=== PATIENT | male | born 1990 | race Caucasian/White ===

== ENCOUNTER 2018-08-24 00:03 | Emergency (ER) | payer MEDICAID, OTHER ==
[~2018-08-24] VITALS: Ht 157.5 cm; Wt 74.3 kg
[2018-08-24 00:06] VITALS: Ht 157.5 cm; Wt 74.3 kg
[2018-08-24] MEDS ORDERED: KETOROLAC 60 MG INJ IM STA (02:16)
[2018-08-24] MEDS ORDERED: LORAZEPAM 2 MG INJ IM ONE (02:30)
--- NOTE | 2018-08-24 02:59 | ERD ---
ER Documentation Chief Complaint Chief Complaint CP X'S 2 HOURS HPI Is a 27-year-old male who comes in with chest pain for the past 2 hours. Denies fevers chills nausea vomiting. The chest pain is gone off the past 6 months happens when he feels very anxious. Also feels palpitations when it comes on. Denies any other current complaints or chest pain is right-sided and spread to the left side of his chest that is very reproducible and worse with movement ROS All systems reviewed and are negative except as per history of present illness. Allergies Allergies: Coded Allergies: No Known Allergy (Unverified , 08/24/18) PMhx/Soc Medical and Surgical Hx: pt denies Medical Hx, pt denies Surgical Hx History of Surgery: No Anesthesia Reaction: No Hx Neurological Disorder: No Hx Respiratory Disorders: No Hx Cardiac Disorders: No Hx Psychiatric Problems: No Hx Miscellaneous Medical Probl: No Hx Alcohol Use: No Hx Substance Use: No Hx Tobacco Use: No Smoking Status: Never smoker Physical Exam Vitals Vital Signs Date Temp Pulse Resp B/P (MAP) Pulse Ox O2 O2 Flow FiO2 Time Delivery Rate 08/24/18 60 15 117/90 100 Room Air 01:55 (99) 08/24/18 98.2 69 18 137/65 99 00:06 (89) Physical Exam Const: No acute distress Head: Atraumatic Eyes: Normal Conjunctiva ENT: Normal External Ears, Nose and Mouth. Neck: Full range of motion. No meningismus. Resp: Clear to auscultation bilaterally Cardio: Regular rate and rhythm, no murmurs Abd: Soft, non tender, non distended. Normal bowel sounds Skin: No petechiae or rashes Back: No midline or flank tenderness Ext: No cyanosis, or edema Neur: Awake and alert Psych: Normal Mood and Affect Results 24 hrs Current Medications Medications Dose Sig/Marion Start Time Status Last (Trade) Ordered Route PRN Stop Time Admin Dose Reason Admin Ketorolac 60 mg ONCE STAT 08/24/18 DC 08/24/18 Tromethamine IM 02:16 02:22 (Toradol) 08/24/18 02:18 Lorazepam 1 mg ONCE ONCE 08/24/18 DC 08/24/18 (Ativan) IM 02:30 02:22 08/24/18 02:31 Procedures/MDM EKG: Rate/Rhythm: [Normal Sinus Rhythm] QRS, ST, T-waves: [No changes consistent w/ acute ischemia] Impression: [No evidence of ischemia or arrhythmia] Chest X-ray 1V Interpreted by me: Soft Tissue: No acute abnormalities Bones: No acute abnormalities Mediastinum/Cardiac Silhouette/Lungs: [No acute abnormalities] Medical decision making: Patient's thoracic symptoms have stabilized while in the department and are stable for outpatient follow up. Exam and work up not consistent w/ ischemia, arrhythmia, PE or dissection. Departure Diagnosis: Primary Impression: Chest pain Chest pain type: unspecified Qualified Codes: R07.9 - Chest pain, unspecified Condition: Stable CESAR PICKETT Aug 24, 2018 02:59
[2018-08-24 03:20] VITALS: BP 115/89; PULSE 63; RESP 16
== END 2018-08-24 03:20 | disposition home or self-care (01) ==
LOC: E/R 00:03
DX: R07.9 Chest pain, unspecified (principal)
CPT/HCPCS: 71045; 93005; 96372; J1885; J2060; Z7502